=== PATIENT | female | born 1980 | race Caucasian/White ===

== ENCOUNTER 2018-11-26 08:45 | Inpatient (IN) | payer BC, MEDICAID, OTHER ==
[2018-11-26] MEDS ORDERED: Lactated Ringer's 1,000 ML IV SCH (09:15)
[2018-11-26] MEDS ORDERED: Lactated Ringer's 1,000 ML IV ONE (09:15)
[2018-11-26] MEDS ORDERED: Sodium Citrate/Citric Acid 15 ml Sol PO ONE (09:19)
[2018-11-26] MEDS ORDERED: cefOXitin IV 2 gm in Dextrose 2 GM/50 ML BAG IVPB ONE ×2 (09:19→11:25)
[2018-11-26] MEDS ORDERED: Morphine 1 mg/ml preservative-free Inj(Duramorph) ONE (10:14)
[2018-11-26 10:36] LABS: BASO % 0.3 % (0.0-2.0); EOS # 0.4 K/uL (0.0-0.7); MONO # 0.5 K/uL (0.0-0.8)
[2018-11-26 10:42] LABS: SQUAMOUS EPITHIAL 11 /hpf (0-5); URINE BACTERIA RARE (<OCC); URINE BILIRUBIN NEGATIVE (NEGATIVE); URINE BLOOD NEGATIVE (NEGATIVE); URINE CLARITY Clear (Clear); URINE COLOR Yellow (YELLOW); URINE GLUCOSE (UA) NORMAL (Normal); URINE LEUKOCYTE ESTERASE NEG Leu/uL (Negative); URINE PROTEIN NEGATIVE (NEGATIVE); URINE UROBILINOGEN NORMAL mg/dL (0.2-1.0)
[2018-11-26 10:45] LABS: EOS % 3.9 % (0.0-4.0); LYMPH # 1.4 K/uL (1.0-4.3); LYMPH % 14.4 % (20.0-40.0); MEAN CORPUSCULAR HEMOGLOBIN 33.2 pg (27.0-31.0); MEAN CORPUSCULAR HGB CONC 34.5 g/dL (33.0-37.0); MEAN PLATELET VOLUME 12.5 fL (7.2-11.7); NEUT # 7.6 K/uL (1.8-7.0); NEUT % 76.4 % (50.0-75.0); NRBC % 0.2 % (0.0-2.0); RBC 4.26 Mil/uL (3.80-5.20); RED CELL DISTRIBUTION WIDTH 13.9 % (11.5-14.5); WHITE BLOOD COUNT 9.9 K/uL (4.8-10.8)
[2018-11-26 10:48] LABS: ALB/GLOB RATIO 1.4 (1.0-2.1); ALBUMIN 4.2 g/dL (3.5-5.0); ALT/SGPT 24 U/L (9-52); AST/SGOT 34 U/L (14-36); BLOOD UREA NITROGEN 8 mg/dL (7-17); CALCIUM 9.2 mg/dl (8.6-10.4); GFR NON-AFRICAN AMERICAN > 60
[2018-11-26] MEDS ORDERED: Midazolam 2 MG/2 ML VIAL ONE ×2 (10:48→12:19)
[2018-11-26] MEDS ORDERED: Propofol 10 mg/ml Inj (20 ML) ONE (10:48)
[2018-11-26 11:00] LABS: HEMOGLOBIN 14.2 g/dL (11.0-16.0)
[2018-11-26 11:01] LABS: MEAN CELL VOLUME 96.4 fL (81.0-99.0)
[2018-11-26] MEDS ORDERED: Sodium Citrate/Citric Acid 15 ml Sol ONE (11:24)
[2018-11-26] MEDS ORDERED: Oxytocin 20 units in LR 2,000 ML IV ONE (11:24)
[2018-11-26] MEDS ORDERED: Oxytocin 10 Units/ml Inj ONE (12:18)
[2018-11-26] MEDS ORDERED: Oxycodone/Acetaminophen 5/325 mg Tab PO PRN (14:05)
--- NOTE | 2018-11-26 14:55 | PCM.SURG1 ---
Surgeon's Initial Post Op Note - Surgeon's Notes Surgeon: dr [facility] Aide: dr garcia Type of Anesthesia: Spinal Anesthesia Administered By: dr pires Pre-Operative Diagnosis: 38 yr a 39week previous c/s in pain Operative Findings: see the op reort Post-Operative Diagnosis: same Operation Performed: reeat section Specimen/Specimens Removed: placente. cord blood Estimated Blood Loss: EBL {In ML}: 800 Blood Products Given: N/A Drains Used: No Drains Post-Op Condition: Good Date of Surgery/Procedure: 11/26/18 Time of Surgery/Procedure: 11:00
[2018-11-26] MEDS: Simethicone 80 mg Chewtab PO SCH ×2 (17:05→22:21)
[2018-11-26] MEDS ORDERED: Tdap Vaccine 0.5 ml Vial (10-64 yrs) IM ONE (17:38)
--- NOTE | 2018-11-27 01:21 | OP ---
PROCEDURE DATE: 11/26/2018 PREOPERATIVE DIAGNOSIS: A 38-year-old 2, para 1 at 39 weeks' with previous section and abdominal pain. POSTOPERATIVE DIAGNOSIS: A 38-year-old 2, para 1 at 39 weeks' with previous section and abdominal pain. SURGEON: Eddie Gonzales MD CHEESE GRADER: Quincy Verde MD, who was present throughout the surgery. PROCEDURE PERFORMED: Repeat section. COMPLICATIONS: None. ESTIMATED BLOOD LOSS: 800 mL. ANESTHESIA: Spinal. ANESTHESIOLOGIST: Dr. Gaston Motta DESCRIPTION OF PROCEDURE: After informed consent was obtained, the patient was brought to the operating room, placed on the table where spinal anesthesia was given. Once the anesthesia was given, the patient was prepped and draped in a normal sterile fashion. A Johnson catheter was inserted under sterile condition. At the site of the previous skin incision, an incision was made with a knife, the subcutaneous cut with a Bovie. The fascia was excised on both sides using curved Leslie scissors. The fascia was from the site of the umbilicus and then at the site of the rectus muscle. The peritoneum was lifted up with two Allis scissors which was cut, and then we continued with abdominal cavity and peritoneum. Bladder blade was created. . Lower uterine segment incision was made with a knife. It was extended on both sides using Bovie and curved Leslie scissors. Baby was delivered in FORD position. Cord was clamped and cut. Baby was handed to the awaiting book sewing machine operator. Cord gas was taken. The uterus was exteriorized and cleared of all clots and debris. The placenta was then delivered manually. The uterine incision was closed using #1 Vicryl in a running interlocking fashion. Second layer was closed with the same stitch. After that, cul-de-sac was cleared of all the clots and debris. The uterus was returned back to the abdominal cavity. After that, gutters were cleared of all the clots and debris. Muscle was closed using 2-0 Vicryl in running interlocking fashion. Fascia was closed using #1 Vicryl in running interlocking fashion. Skin was closed using 3-0 Monocryl on a straight needle. The patient tolerated the procedure well. Lap, sponge and instrument counts were correct x2. Eddie Gonzales MD
--- NOTE | 2018-11-27 06:10 | OBPPN ---
Datetime: 11/27/2018 06:08 PP Pain Prov: Within normal limits PP Nausea Prov: Denies PP Flatus Prov: No PP Abdomen/Uterus Prov: Normal PP Extremities Prov: Normal PP C/S Incision Prov: Normal PP Comments Phys Exam Prov: dressing clean and dry PP Impression Prov: Normal progression PP Plan Prov: Continue present management PP Progress Note Prov: pt was seen at bed side, pain under control,no n/v, toleralting liquid deit, rawls inn, no flatus pod#1 s/p c/s cbc advance det cont poast op care cont pain managemenet encourage ambulatioj Vital Signs Provider PP: Within Normal Limits
[2018-11-27 08:18] LABS: MEAN CELL VOLUME 97.1 fL (81.0-99.0); MEAN CORPUSCULAR HEMOGLOBIN 33.1 pg (27.0-31.0); MEAN CORPUSCULAR HGB CONC 34.1 g/dL (33.0-37.0); MEAN PLATELET VOLUME 12.1 fL (7.2-11.7); RBC 3.64 Mil/uL (3.80-5.20); WHITE BLOOD COUNT 11.4 K/uL (4.8-10.8)
[2018-11-27] MEDS: Prenatal Multivit/Folic Acid/Iron Tab PO SCH (10:51)
[2018-11-27] MEDS: Simethicone 80 mg Chewtab PO SCH ×4 (10:51→21:27)
[2018-11-27] MEDS ORDERED: Bisacodyl 5mg EC Tab PO ONE (14:06)
[2018-11-28] MEDS: Oxycodone/Acetaminophen 5/325 mg Tab PO PRN (06:47)
[2018-11-28] MEDS: Simethicone 80 mg Chewtab PO SCH ×4 (09:57→22:31)
[2018-11-28] MEDS: Prenatal Multivit/Folic Acid/Iron Tab PO SCH (09:58)
--- NOTE | 2018-11-28 10:33 | OBPPN ---
Datetime: 11/28/2018 10:31 PP Pain Prov: Within normal limits PP Nausea Prov: Denies PP Flatus Prov: Yes PP Abdomen/Uterus Prov: Normal PP Lochia Prov: Normal PP Extremities Prov: Normal PP C/S Incision Prov: Normal PP Impression Prov: Normal progression PP Plan Prov: Continue present management PP Progress Note Prov: pt was seen at bed side, pain under control,no n/v, tolerating deit, voiding, min lochia, flatus+ pod#2 s/p c/s cont pain evelyn cont post op care encourage ambulation Vital Signs Provider PP: Reviewed; Within Normal Limits
[2018-11-29 08:45] VITALS: BP 100/69; O2SAT 100
[2018-11-29] MEDS: Prenatal Multivit/Folic Acid/Iron Tab PO SCH (09:02)
[2018-11-29] MEDS: Oxycodone/Acetaminophen 5/325 mg Tab PO PRN (09:02)
[2018-11-29] MEDS: Simethicone 80 mg Chewtab PO SCH (09:02)
[2018-11-29] MEDS: Influenza Vaccine 60 mcg/0.5 mL SYR (4YR UP) IM ONE ×2 (10:35→10:48)
[2018-11-29 17:57] VITALS: PULSE 80; RESP 18; TEMP 97.4
== END 2018-11-29 13:56 | disposition home or self-care (01) | DRG 788 ==
LOC: C.EROB 08:45 → C.4D 09:15 → C.4M 16:10
PROVIDERS: ADMIT Obstetrics & Gynecology; ATTEND Obstetrics & Gynecology
PROC: 10D00Z1 Extraction of Products of Conception, Low, Open Approach (ICD-10-PCS; principal; 2018-11-26)
DX: O34.211 Maternal care for low transverse scar from previous cesarean delivery (principal); Z37.0 Single live birth; Z3A.39 39 weeks gestation of pregnancy